=== PATIENT | male | born 1970 | race Caucasian/White ===

== ENCOUNTER 2018-05-13 20:25 | Emergency (ER) | payer MEDICAID, SELFPAY ==
[2018-05-13 20:26] VITALS: BP 163/84; PULSE 99; RESP 18; TEMP 36.6; O2SAT 97; BMI 33.0
--- NOTE | 2018-05-13 21:33 | US_ITS ---
STUDY: SCROTUM ULTRASOUND REASON FOR EXAM: Male, 47 years old. Left testicular pain TECHNIQUE: Ultrasound evaluation of the scrotum was performed with color Doppler and static murphy-scale imaging. COMPARISON: None. FINDINGS: RIGHT TESTICLE INTRATESTICULAR: There is a normal size of the right testicle. The right testicle measures 4.4 x 2.9 x 2.5 cm. There is a homogenous echotexture. There is normal arterial and normal venous vascularity. There is no demonstrated right testicular mass or cyst. EXTRATESTICULAR: The epididymis is normal in size. The epididymis head measures 1.3 x 1.1 x 0.7 cm. There is normal vascularity of the epididymis. There is no demonstrated epididymal cystic structure. There is no demonstrated hydrocele. There is no demonstrated varicocele. There is no demonstrated extratesticular mass or cyst. LEFT TESTICLE INTRATESTICULAR: There is a normal size of the left testicle. The left testicle measures 4.0 x 2.6 x 2.4 cm. There is a homogenous echotexture. There is normal arterial and normal venous vascularity. There is no demonstrated left testicular mass or cyst. EXTRATESTICULAR: The epididymis is normal in size. The epididymis head measures 0.9 x 1.1 x 0.9 cm. There is normal vascularity of the epididymis. There is no demonstrated epididymal cystic structure. There is a moderate to large size hydrocele with subtle internal debris.. There are prominent extratesticular veins consistent suggestive of varicocele. There is no demonstrated extratesticular mass or cyst. US/Testicular with Arterial Flow IMPRESSION: No evidence of torsion. Findings suspicious for left-sided varicocele. Sizable left hydrocele which may be chronic given that there is some debris. There is no loculation. Small right hydrocele. Electronically Signed: Iesha Braden MD at 22:31 EDT Tel , Service support ,
--- NOTE | 2018-05-13 22:45 | ED.VISSUMM ---
- ER Visit Summary Date of Service: 05/13/18 Chief Complaint: [Left testicle pain] History of Present Illness: The patient is a 47 M [presents the emergency department complaint of pain in his left testicle that started 4 days ago. Patient denies any trauma. Patient states pain is worse when he is up and moving. Patient has not had any fever. He denies any dysuria. He is never had pain like this before. At times the pain radiates into his lower left abdomen.] Physical Examination: HEENT-PERRLA, EOMI. Cranial nerves II through XII grossly intact. TMs clear. Mucous membranes moist. No adenopathy. Cardiovascular-regular rate and rhythm without murmur or ectopy Lungs-clear to auscultation, chest wall stable without crepitus or subcu emphysema Abdomen-normoactive bowel sounds, soft, nontender, no rebound or rigidity, no peritoneal signs. exam-patient does have tenderness to palpation over the left epididymis. Scrotum is slightly enlarged on the left. No hernias palpated in the inguinal canal. Extremities-intact ?4, normal range of motion, normal pulses, atraumatic] Test Results: [Ultrasound of the left testicle obtained showed a large hydrocele as well as a varicocele. Epididymis was normal. No torsion. Patient had normal blood flow.] Emergency Department Course and Treatment: [Patient now anything for pain] Treatment Plan: [Patient advised to use scrotal support and will be given referral to urology adjuster electrical contacts.] Disposition: [Discharged home in stable condition] Impression: [Left hydrocele and varicocele] This note was generated with [employer] dictation software. It may contain incorrect words, spelling, and punctuation that were not noted in review of the chart prior to signing ED Disposition - Plan for ED Patient: Chief Complaint: Male Pain/Injury Referrals: Care Physician,No Primary [Primary Care Provider] -
--- NOTE | 2018-05-13 22:47 | ED.DEP ---
ED Disposition - Plan for ED Patient: Chief Complaint: Male Pain/Injury Instructions: ED Hydrocele Type Not Specified Referrals: Care Physician,No Primary [Primary Care Provider] - Severino Phillips MD [STAFF PHYSICIAN] - 3-5 Days
[2018-05-13 22:59] VITALS: RESP 16
== END 2018-05-13 23:01 | disposition home or self-care (01) ==
LOC: ED 21:43
PROVIDERS: Emergency Provider Emergency Medicine
DX: N43.3 Hydrocele, unspecified (principal); I86.1 Scrotal varices; F17.220 Nicotine dependence, chewing tobacco, uncomplicated
CPT/HCPCS: 76870; 93976; 99282

== ENCOUNTER 2019-05-21 18:38 | Emergency (ER) | payer OTHER, SELFPAY ==
[2019-05-21 18:38] VITALS: BP 158/112; PULSE 112; RESP 16
[2019-05-21 18:39] VITALS: BP 158/112; PULSE 112; RESP 16; TEMP 35.8; BMI 35.3
--- NOTE | 2019-05-21 18:58 | RAD_ITS ---
STUDY: X-RAY - LEFT TIBIA AND FIBULA REASON FOR EXAM: Male, 48 years old. Pain TECHNIQUE: 2 view(s) of the tibia and fibula were obtained. COMPARISON: None. FINDINGS: Total knee arthroplasty is in place. There is no evidence of fracture or dislocation. There are no significant degenerative changes. There are no radiodense foreign bodies. RAD/Tibia & Fibula 2 Views IMPRESSION: No fracture or dislocation. Electronically Signed: Andrey Ojeda, at 19:36 EDT Tel , Service support ,
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
[2019-05-21] MEDS: BACITRACIN 15 GM Tube 1 APPLIC TOPICAL (20:08)
[2019-05-21 20:14] VITALS: RESP 18
== END 2019-05-21 20:15 | disposition home or self-care (01) ==
PROVIDERS: Emergency Provider Emergency Medicine
DX: S80.812A Abrasion, left lower leg, initial encounter (principal); Z96.652 Presence of left artificial knee joint; I10 Essential (primary) hypertension; F17.220 Nicotine dependence, chewing tobacco, uncomplicated; W26.8XXA Contact with other sharp object(s), not elsewhere classified, initial encounter; Y93.89 Activity, other specified; Y92.89 Other specified places as the place of occurrence of the external cause; Y99.0 Civilian activity done for income or pay
CPT/HCPCS: 73590; 99283

== ENCOUNTER → 2019-07-07 08:18 | Outpatient (CLI) | payer OTHER, SELFPAY ==
[2019-07-06 15:03] VITALS: BMI 35.3
[2019-07-07 12:22] LABS: Absolute Lymphocyte Count 0.91 X10^3/uL (0.83-4.51); Absolute Neutrophil Count 4.5 X10^3/uL (2.0-7.7); Basophil# 0.03 X10^3/uL; Basophil% 0.5 % (0-1); Eosinophil# 0.31 X10^3/uL; Eosinophils% 4.9 % (0-5); Hematocrit 47.8 % (40-54); Hemoglobin 16.2 g/dL (13.0-16.5); Lymphocyte # 0.91 X10^3/ul (4.0); Lymphocyte % 14.5 % (19-41); Mean Corp Hgb Conc 33.9 g/dL (32-36); Mean Corpuscular Volume 97.4 fL (80-94); Mean Platelet Vol. 10.5 fl (6.2-12.0); Monocyte# 0.45 X10^3/uL; Monocyte% 7.2 % (0-10); NRBC Flagged by Analyzer 0 % (0-5); Neutrophil # 4.54 X10^3/uL (2.7-7.7); Neutrophil % 72.3 % (47-70); Platelet Count 213 K/mm3 (150-450); RBC Distribution Width CV 12.1 % (11.6-14.6); RBC Distribution Width SD 43.3 fl (35.1-43.9); Red Blood Count 4.91 M/mm3 (4.6-6.2); White Blood Count 6.3 K/mm3 (4.4-11.0)
[2019-07-07 12:43] LABS: ALB/GLOB Ratio 1.1 RATIO (0.9-2.4); AST(SGOT) 32 U/L (15-37); Alanine Aminotransfer ALT/SGPT 56 U/L (16-61); Albumin, Serum 3.8 g/dL (3.2-5.0); Alkaline Phosphatase 71 U/L (45-117); Anion Gap 8 (5-15); BUN 9 mg/dL (7-18); BUN/Creat Ratio 9.4 RATIO (10-20); Chloride 103 mmol/L (98-107); Cholesterol 218 mg/dL (200); Creatinine, Serum 0.95 mg/dL (0.70-1.30); EST Glomerular Filtration Rate 89 mL/min (>60); Est Glom Filt Rate - Afr Amer 108 mL/min (>60); Globulin 3.4 g/dL (2.2-4.2); Glucose 105 mg/dL (74-106); High Density Lipoprotein 45 mg/dL; Potassium 4.2 mmol/L (3.5-5.1); Protein, Total 7.2 g/dL (6.4-8.2); Sodium Level 138 mmol/L (136-145); Triglycerides 514 mg/dL
== END ==
PROVIDERS: PCP Internal Medicine; Visit Provider Internal Medicine
DX: I10 Essential (primary) hypertension (principal)
CPT/HCPCS: 36415; 80053; 80061; 85025

== ENCOUNTER 2019-08-16 15:14 | Emergency (ER) | payer OTHER, SELFPAY ==
[2019-07-06 15:03] VITALS: BMI 35.3
[2019-08-16 15:15] VITALS: BP 151/111; PULSE 103; RESP 20; TEMP 36.7; O2SAT 98; BMI 37.0
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
[2019-08-16 17:31] VITALS: PULSE 103; RESP 14; O2SAT 100
== END 2019-08-16 17:31 | disposition home or self-care (01) ==
LOC: ED 15:58
PROVIDERS: Emergency Provider Emergency Medicine; PCP Internal Medicine
DX: S80.812A Abrasion, left lower leg, initial encounter (principal); S10.91XA Abrasion of unspecified part of neck, initial encounter; I10 Essential (primary) hypertension; M10.9 Gout, unspecified; F17.220 Nicotine dependence, chewing tobacco, uncomplicated; Z79.899 Other long term (current) drug therapy; V68.0XXA Driver of heavy transport vehicle injured in noncollision transport accident in nontraffic accident, initial encounter; Y93.I9 Activity, other involving external motion; Y92.410 Unspecified street and highway as the place of occurrence of the external cause; Y99.8 Other external cause status
CPT/HCPCS: 99282

== ENCOUNTER → 2019-08-25 08:59 | Outpatient (CLI) | payer OTHER, SELFPAY ==
[2019-08-25 08:31] VITALS: BMI 37.0
== END ==
PROVIDERS: PCP Internal Medicine; Visit Provider Internal Medicine
DX: Z11.3 Encounter for screening for infections with a predominantly sexual mode of transmission (principal)
CPT/HCPCS: 87255

== ENCOUNTER → 2020-02-01 | Outpatient (CLI) | payer SELFPAY ==
[2020-01-28 16:44] VITALS: BMI 37.0
[2020-02-01 16:07] LABS: Absolute Lymphocyte Count 1.35 X10^3/uL (0.83-4.51); Absolute Neutrophil Count 4.8 X10^3/uL (2.0-7.7); Basophil# 0.03 X10^3/uL; Basophil% 0.4 % (0-1); Eosinophils% 4.2 % (0-5); Hematocrit 44.9 % (40-54); Hemoglobin 15.4 g/dL (13.0-16.5); Lymphocyte # 1.35 X10^3/ul (4.0); Lymphocyte % 18.9 % (19-41); Mean Corp Hgb Conc 34.3 g/dL (32-36); Mean Corpuscular Hgb 33.3 pg (27.0-32.0); Mean Corpuscular Volume 97.2 fL (80-94); Mean Platelet Vol. 10.6 fl (6.2-12.0); Monocyte# 0.67 X10^3/uL; Monocyte% 9.4 % (0-10); NRBC Flagged by Analyzer 0 % (0-5); Neutrophil # 4.75 X10^3/uL (2.7-7.7); Neutrophil % 66.5 % (47-70); Platelet Count 251 K/mm3 (150-450); RBC Distribution Width CV 13.6 % (11.6-14.6); RBC Distribution Width SD 48.7 fl (35.1-43.9); Red Blood Count 4.62 M/mm3 (4.6-6.2); White Blood Count 7.1 K/mm3 (4.4-11.0)
[2020-02-01 16:10] LABS: ALB/GLOB Ratio 1.2 RATIO (0.9-2.4); AST(SGOT) 36 U/L (15-37); Alanine Aminotransfer ALT/SGPT 55 U/L (16-61); Albumin, Serum 3.7 g/dL (3.2-5.0); Alkaline Phosphatase 92 U/L (45-117); Anion Gap 4 (5-15); BUN 11 mg/dL (7-18); BUN/Creat Ratio 11.4 RATIO (10-20); Calcium,Total 8.8 mg/dL (8.5-10.1); Chloride 101 mmol/L (98-107); Creatinine, Serum 0.97 mg/dL (0.70-1.30); EST Glomerular Filtration Rate 88 mL/min (>60); Est Glom Filt Rate - Afr Amer 106 mL/min (>60); Globulin 3.2 g/dL (2.2-4.2); Glucose 107 mg/dL (74-106); Potassium 4.4 mmol/L (3.5-5.1); Protein, Total 6.9 g/dL (6.4-8.2); Sodium Level 135 mmol/L (136-145)
== END | disposition home or self-care (01) ==
LOC: BIMLAB 12:01
PROVIDERS: PCP Internal Medicine; Referring Provider Internal Medicine; Visit Provider Internal Medicine
DX: R10.9 Unspecified abdominal pain (principal); R19.7 Diarrhea, unspecified
CPT/HCPCS: 36415; 80053; 85025

== ENCOUNTER → 2020-02-02 | Outpatient (CLI) | payer SELFPAY ==
[2020-01-28 16:44] VITALS: BMI 37.0
== END | disposition home or self-care (01) ==
LOC: LABSPEC 13:40
PROVIDERS: PCP Internal Medicine; Referring Provider Internal Medicine; Visit Provider Internal Medicine
DX: R19.7 Diarrhea, unspecified (principal); R10.9 Unspecified abdominal pain
CPT/HCPCS: 83630; 87493; 87506